=== PATIENT | female | born 1985 | race Caucasian/White ===

== ENCOUNTER 2019-07-03 11:40 | Emergency (ER) | payer BC ==
[2019-07-03 12:12] VITALS: BP 114/79
--- NOTE | 2019-07-03 12:50 | UC ---
UC General HPI - HPI Summary HPI Summary: pt is c/o a boil in her L groin for about a week. she notes the site is very tender. she had something similar in the past that required an I&D. she denies hx MRSA, DM, fever and chills. - History of Current Complaint Chief Complaint: [place] Stated Complaint: SKIN CONCERN Time Seen by Provider: 07/03/19 12:35 Hx Obtained From: Patient Hx Last Menstrual Period: 06/14/19 Onset/Duration: Gradual Onset Timing: Constant Pain Intensity: 4 Associated Signs & Symptoms: Negative: Fever - Allergy/Home Medications Allergies/Adverse Reactions: Allergies Allergy/AdvReac Type Severity Reaction Status Date / Time latex Allergy Throats Verified 07/03/19 12:07 swelling during surgery Home Medications: Home Medications Etonogest/Eth.estradiol (Nf) [Nuvaring Vaginal Ring] 1 each VAGINAL .SEE COMMENTS 07/03/19 [History Confirmed 07/03/19] Levothyroxine TAB* [Synthroid TAB*] 150 mcg PO DAILY 07/03/19 [History Confirmed 07/03/19] PMH/Surg Hx/FS Hx/Imm Hx Endocrine History: Thyroid Disease - Surgical History Surgical History: Yes Surgery Procedure, Year, and Place: Thyroidectomy, 2017, [place]; Appendectomy, 2006 , [place]; Right Knee Arthroscopies - Family History Known Family History: Positive: Non-Contributory - Social History Alcohol Use: None Substance Use Type: None Smoking Status (MU): Never Smoked Tobacco Review of Systems All Other Systems Reviewed And Are Negative: No Constitutional: Negative: Fever, Chills Skin: Positive: Rash - L groin Musculoskeletal: Negative: Arthralgia, Myalgia Physical Exam Triage Information Reviewed: Yes Appearance: Well-Appearing Vital Signs: Initial Vital Signs Temp 98.6 F 07/03/19 12:06 Pulse 86 07/03/19 12:06 Resp 16 07/03/19 12:06 BP 114/79 07/03/19 12:06 Pulse Ox 100 07/03/19 12:06 Vital Signs Reviewed: Yes Eyes: Positive: Conjunctiva Clear Neck: Positive: Supple Respiratory: Positive: No respiratory distress Cardiovascular: Positive: RRR Abdomen Description: Positive: Nontender Musculoskeletal: Positive: ROM Intact Neurological: Positive: Alert Psychological: Positive: Age Appropriate Behavior Skin Exam: Normal, Other - L calderon just lateral to the lower labia is a 2cm area of mild induration and erythema. The site is tender but not fluctuant or pointing and there is no secondary cellulitis. No inguinal adenopathy. Strong femoral pulse. no joint pain. Course/Dx - Differential Dx - Multi-Symptom Differential Diagnoses: Other - no concern for joint infection or secondary cellulitis. there is a local infection; however, there is no fluctuance or pointing thus I&D not indicated at this time. Will tx with keflex and warm compress or sitz baths and close f/u. pt advised may progress and need I & D infuture. - Diagnoses Provider Diagnosis: Skin infection Discharge - Sign-Out/Discharge Documenting (check all that apply): Patient Departure All imaging exams completed and their final reports reviewed: No Studies - Discharge Plan Condition: Stable Disposition: HOME Prescriptions: Cephalexin CAP* [Keflex CAP*] 500 mg PO TID 10 Days #30 cap Patient Education Materials: Abscess (ED) Referrals: Marsha Culp MD [Medical Doctor] - 3 Days Additional Instructions: warm compress or sitz bath 2-3 times daily. - Billing Disposition and Condition Condition: STABLE Disposition: Home
== END 2019-07-03 12:57 | disposition home or self-care (01) ==
LOC: UCCORT 11:40
DX: L08.9 Local infection of the skin and subcutaneous tissue, unspecified (principal); E07.9 Disorder of thyroid, unspecified
CPT/HCPCS: 99202; G0463